=== PATIENT | female | born 2000 | race Caucasian/White ===

== ENCOUNTER 2023-08-08 17:28 | Emergency (ER) | payer OTHER ==
[2023-08-08 17:49] VITALS: BP 111/71; PULSE 92; RESP 18; TEMP 98.3; BMI 33.6
[2023-08-08] MEDS ORDERED: CEPHALEXIN MONOHYDRATE 500 MG CAPSULE (UD) PO ONE (18:08)
[2023-08-08] MEDS ORDERED: CEPHALEXIN MONOHYDRATE 500 MG CAPSULE (UD) ONE (18:15)
== END 2023-08-08 18:30 | disposition home or self-care (01) ==
LOC: FER 17:28
DX: O91.22 Nonpurulent mastitis associated with the puerperium (principal); N64.4 Mastodynia; O86.4 Pyrexia of unknown origin following delivery; R50.9 Fever, unspecified
CPT/HCPCS: 99283-25

== ENCOUNTER 2024-06-19 19:51 | Emergency (ER) | payer OTHER ==
[2024-06-19 19:58] VITALS: BP 111/69; PULSE 88; RESP 18; TEMP 98.4; BMI 29.2
[2024-06-19 21:07] LABS: HCG,QUALITATIVE URINE NEGATIVE
[2024-06-19 21:37] LABS: HEMATOCRIT 37.5 % (32.4-45.2); HEMOGLOBIN 12.5 G/dL (10.7-15.3); MCH 30.6 pg (25.7-33.7); MCHC 33.3 g/dl (32.0-36.0); MEAN CELL VOLUME 91.9 fl (80-96); MEAN PLT VOLUME 8.8 fl (7.5-11.1); PLATELET COUNT 188.7 10^3/uL (134-434); RBC 4.08 10^6/uL (3.60-5.2)
[2024-06-19 21:38] LABS: INR 0.94 (0.83-1.09); PROTHROMBIN TIME (PATIENT) 10.7 SEC (9.7-13.0)
[2024-06-19 22:12] LABS: PLATELET ESTIMATE ADEQUATE
[2024-06-19 22:33] LABS: CREATININE 0.8 mg/dl (0.6-1.3)
[2024-06-19 22:34] LABS: ALBUMIN 4.1 g/dl (3.4-5.0); CALCIUM 9.1 mg/dl (8.5-10.1); POTASSIUM 3.8 mmol/L (3.5-5.1); TOT PROT 6.4 g/dl (6.4-8.2)
[2024-06-19 22:35] LABS: BILIRUBIN,TOTAL 0.7 mg/dl (0.2-1)
[2024-06-20 00:08] LABS: HIV INTERPRETATION NEGATIVE (NEGATIVE)
== END 2024-06-19 23:50 | disposition home or self-care (01) ==
LOC: FER 19:51
DX: N83.209 Unspecified ovarian cyst, unspecified side (principal)
CPT/HCPCS: 36415; 76830-TC; 80053; 81003; 84703; 85025; 85610; 86803; 86850; 86900; 86901; 87389; 99284-25